=== PATIENT | male | born 1960 | race Caucasian/White ===

== ENCOUNTER 2025-01-10 09:30 | Day surgery (SDC) | payer OTHER ==
[2025-01-10 10:12] LABS: BASO % 0.9 % (0-2.0); EOS % 5.8 % (0-4.5); HEMATOCRIT 41.6 % (35.4-49); HEMOGLOBIN 13.9 GM/dL (11.7-16.9); LYMPH % 14.5 % (8-40); MCH 30.4 pg (25.7-33.7); MCHC 33.4 g/dl (32.0-35.9); MEAN CELL VOLUME 90.9 fl (80-96); MEAN PLT VOLUME 8.1 fl (7.5-11.1); NEUT % 68.8 % (42.8-82.8); PLATELET COUNT 268 10^3/uL (134-434); RBC 4.57 M/mm3 (4.00-5.60); RDW 13.8 % (11.9-15.9); WHITE BLOOD COUNT 7.9 K/mm3 (4.0-10.0)
[2025-01-10 10:33] LABS: CHLORIDE 105 mmol/L (98-107); SODIUM 138 mmol/L (136-145)
[2025-01-10 10:37] LABS: ANION GAP 9 mmol/L (4-13); BLOOD UREA NITROGEN 18.2 mg/dL (7-18); CO2 24 mmol/L (21-32); GLUCOSE,RANDOM 108 mg/dL (74-106); MAGNESIUM 2.1 mg/dL (1.8-2.4)
[2025-01-10 10:39] LABS: SGPT/ALT 28 U/L (13-61)
[2025-01-10 10:40] LABS: BILIRUBIN,TOTAL 0.5 mg/dL (0.2-1); CREATININE 0.9 mg/dL (0.55-1.3); SGOT/AST 19 U/L (15-37); TOT PROT 6.6 g/dl (6.4-8.2)
[2025-01-10 10:43] LABS: ALK PHOS 103 U/L (45-117)
[2025-01-10] MEDS: FOSAPREPITANT DIMEGLUMINE 150 MG in SODIUM CHLORIDE 145 ML IVPB ONE (11:21)
[2025-01-10] MEDS: SODIUM CHLORIDE 250 ML IV ONE (11:22)
[2025-01-10] MEDS: FAMOTIDINE 20 MG/50 ML IVPB 20 MG/50 ML MG IVPB ONE (12:25)
[2025-01-10] MEDS: PALONOSETRON HCL 0.25 MG/5 ML VIAL IVPUSH ONE (13:02)
[2025-01-10] MEDS: DEXAMETHASONE SODIUM PHOSPHATE 12 MG, DIPHENHYDRAMINE 25 MG in SODIUM CHLORIDE 100 ML IVPB ONE (13:06)
[2025-01-10] MEDS: CYANOCOBALAMIN (VITAMIN B-12) 1000 MCG/1 ML VIAL IM ONE (13:28)
[2025-01-10] MEDS: PEMETREXED DISODIUM IVPB ONE (13:42)
[2025-01-10] MEDS: SODIUM CHLORIDE IVPB ONE (13:42)
[2025-01-10] MEDS: PORTA CATH FLUSH 10 ML IVPUSH PRN (14:50)
[2025-01-10 16:31] VITALS: RESP 18; TEMP 98.2
[2025-01-10 16:41] VITALS: BP 122/70; PULSE 65
== END 2025-01-10 14:50 | disposition home or self-care (01) ==
LOC: J7W 09:30 → JONCCHEMO 09:30
PROVIDERS: ATTEND Internal Medicine Hematology & Oncology
DX: Z51.11 Encounter for antineoplastic chemotherapy (principal); C34.90 Malignant neoplasm of unspecified part of unspecified bronchus or lung
CPT/HCPCS: 36415; 80053; 83735; 85025; 96367; 96375; 96411; 96413; J1453; J9305

== ENCOUNTER 2025-01-11 09:40 | Day surgery (SDC) | payer OTHER ==
[2025-01-11] MEDS: DEXAMETHASONE SODIUM PHOSPHATE 6 MG in SODIUM CHLORIDE 50 ML IVPB ONE (12:49)
[2025-01-11] MEDS: SODIUM CHLORIDE 500 ML IV ONE (12:49)
[2025-01-11] MEDS: PORTA CATH FLUSH 10 ML IVPUSH PRN (14:35)
[2025-01-11] MEDS: PEGFILGRASTIM-CBQV (UDENYCA) 6 MG/0.6 ML SYRINGE SQ ONE (14:36)
[2025-01-11 17:17] VITALS: BP 129/68; PULSE 76; RESP 20; TEMP 97.6
== END 2025-01-11 15:00 | disposition home or self-care (01) ==
LOC: JONCCHEMO 09:40 → J7W 09:44 → JONCCHEMO 15:00
PROVIDERS: ATTEND Internal Medicine Hematology & Oncology
PROC: 3E043GC Introduction of Other Therapeutic Substance into Central Vein, Percutaneous Approach (ICD-10-PCS; principal; 2025-01-11)
PROC: 3E023GC Introduction of Other Therapeutic Substance into Muscle, Percutaneous Approach (ICD-10-PCS; 2025-01-11)
DX: C34.11 Malignant neoplasm of upper lobe, right bronchus or lung (principal); Z76.89 Persons encountering health services in other specified circumstances
CPT/HCPCS: 96365; 96366; 96372; Q5111

== ENCOUNTER 2025-01-30 10:00 | Day surgery (SDC) | payer OTHER ==
[2025-01-30] MEDS: SODIUM CHLORIDE 250 ML IV ONE (10:18)
[2025-01-30 10:39] LABS: BASO % 0.6 % (0-2.0); EOS % 3.7 % (0-4.5); HEMATOCRIT 39.9 % (35.4-49); HEMOGLOBIN 13.2 GM/dL (11.7-16.9); LYMPH % 20.9 % (8-40); MCH 30.9 pg (25.7-33.7); MCHC 33.1 g/dl (32.0-35.9); MEAN CELL VOLUME 93.3 fl (80-96); MEAN PLT VOLUME 7.9 fl (7.5-11.1); MONO % 11.1 % (3.8-10.2); NEUT % 63.7 % (42.8-82.8); PLATELET COUNT 415 10^3/uL (134-434); RBC 4.28 M/mm3 (4.00-5.60); RDW 14.2 % (11.9-15.9)
[2025-01-30 11:07] LABS: CHLORIDE 108 mmol/L (98-107); POTASSIUM 4.3 mmol/L (3.5-5.1); SODIUM 141 mmol/L (136-145)
[2025-01-30 11:10] LABS: ALBUMIN 3.9 g/dl (3.4-5.0); ANION GAP 4 mmol/L (4-13); BLOOD UREA NITROGEN 19.9 mg/dL (7-18); CO2 29 mmol/L (21-32); GLUCOSE,RANDOM 105 mg/dL (74-106); MAGNESIUM 2.1 mg/dL (1.8-2.4)
[2025-01-30 11:13] LABS: CREATININE 0.9 mg/dL (0.55-1.3); SGOT/AST 28 U/L (15-37); SGPT/ALT 67 U/L (13-61)
[2025-01-30 11:14] LABS: BILIRUBIN,TOTAL 0.3 mg/dL (0.2-1)
[2025-01-30 11:15] LABS: TOT PROT 6.7 g/dl (6.4-8.2)
[2025-01-30 11:16] LABS: ALK PHOS 105 U/L (45-117)
[2025-01-30] MEDS: FAMOTIDINE 20 MG/50 ML IVPB 20 MG/50 ML MG IVPB ONE (11:20)
[2025-01-30] MEDS: FOSAPREPITANT DIMEGLUMINE 150 MG in SODIUM CHLORIDE 145 ML IVPB ONE (11:58)
[2025-01-30] MEDS: PALONOSETRON HCL 0.25 MG/5 ML VIAL IVPUSH ONE (12:33)
[2025-01-30] MEDS: DEXAMETHASONE SODIUM PHOSPHATE 12 MG, DIPHENHYDRAMINE 25 MG in SODIUM CHLORIDE 100 ML IVPB ONE (12:36)
[2025-01-30] MEDS: PEMETREXED DISODIUM IVPB ONE (13:28)
[2025-01-30] MEDS: SODIUM CHLORIDE IVPB ONE (13:28)
[2025-01-30] MEDS: CYANOCOBALAMIN (VITAMIN B-12) 1000 MCG/1 ML VIAL IM ONE (13:45)
[2025-01-30] MEDS: PORTA CATH FLUSH 10 ML IVPUSH PRN (14:35)
[2025-01-30 14:53] VITALS: TEMP 98.3
[2025-01-30 15:02] VITALS: BP 115/49; PULSE 63
[2025-01-30 15:31] VITALS: RESP 20
== END 2025-01-30 14:40 | disposition home or self-care (01) ==
LOC: JONCCHEMO 10:00 → J7W 11:58 → JONCCHEMO 11:58
PROVIDERS: ATTEND Internal Medicine Hematology & Oncology
PROC: 3E04305 Introduction of Other Antineoplastic into Central Vein, Percutaneous Approach (ICD-10-PCS; principal; 2025-01-30)
PROC: 3E043GC Introduction of Other Therapeutic Substance into Central Vein, Percutaneous Approach (ICD-10-PCS; 2025-01-30)
PROC: 3E013GC Introduction of Other Therapeutic Substance into Subcutaneous Tissue, Percutaneous Approach (ICD-10-PCS; 2025-01-30)
DX: Z51.11 Encounter for antineoplastic chemotherapy (principal); C34.11 Malignant neoplasm of upper lobe, right bronchus or lung
CPT/HCPCS: 36415; 80053; 83735; 85025; 96372; 96375; 96411; 96413; J1453; J9305

== ENCOUNTER 2025-01-31 12:00 | Day surgery (SDC) | payer OTHER ==
[2025-01-31] MEDS: DEXAMETHASONE SODIUM PHOSPHATE 6 MG in SODIUM CHLORIDE 50 ML IVPB ONE (12:21)
[2025-01-31] MEDS: SODIUM CHLORIDE 500 ML IV ONE (12:21)
[2025-01-31] MEDS: PEGFILGRASTIM-CBQV (UDENYCA) 6 MG/0.6 ML SYRINGE SQ ONE (14:30)
[2025-01-31] MEDS ORDERED: PORTA CATH FLUSH 10 ML IVPUSH PRN (16:00)
[2025-01-31 16:03] VITALS: BP 110/55; PULSE 67; RESP 18; TEMP 98.1
== END 2025-01-31 14:40 | disposition home or self-care (01) ==
LOC: JONCCHEMO 12:00 → J7W 12:14 → JONCCHEMO 14:40
PROVIDERS: ATTEND Internal Medicine Hematology & Oncology
PROC: 3E023GC Introduction of Other Therapeutic Substance into Muscle, Percutaneous Approach (ICD-10-PCS; principal; 2025-01-31)
PROC: 3E043GC Introduction of Other Therapeutic Substance into Central Vein, Percutaneous Approach (ICD-10-PCS; 2025-01-31)
DX: C34.11 Malignant neoplasm of upper lobe, right bronchus or lung (principal); Z76.89 Persons encountering health services in other specified circumstances
CPT/HCPCS: 96365; 96366; 96372; Q5111

== ENCOUNTER 2025-02-20 08:52 | Day surgery (SDC) | payer OTHER ==
[2025-02-20 09:20] LABS: ABSOLUTE IMMATURE GRANULOCYTES 0.12 x10^3/uL (0.0-0.031); BASOPHILS # 0.05 x10^3/uL (0.01-0.08); EOSINOPHIL % 2.1 % (0.8-7.0); EOSINOPHILS # 0.18 x10^3/uL (0.04-0.54); HEMATOCRIT 38.3 % (40.1-51.0); HEMOGLOBIN 12.5 g/dL (13.7-17.5); MCHC 32.6 g/dl (32.3-36.5); MEAN CELL VOLUME 92.5 fl (79.0-92.2); MEAN PLT VOLUME 9.6 fl (9.4-12.4); MONOCYTE # 0.93 x10^3/uL (0.30-0.82); PLATELET COUNT 321 x10^3/uL (163-337); RDW 14.4 % (12.2-16.4)
[2025-02-20 09:28] LABS: INR 1.18 (0.83-1.09)
[2025-02-20 09:31] LABS: ACTIVATED PTT 29.8 SECONDS (25.2-36.5)
[2025-02-20 09:47] LABS: CHLORIDE 105 mmol/L (98-107); POTASSIUM 3.5 mmol/L (3.5-5.1); SODIUM 140 mmol/L (136-145)
[2025-02-20 09:49] LABS: ALBUMIN 3.6 g/dl (3.4-5.0); ANION GAP 8 mmol/L (4-13); BLOOD UREA NITROGEN 17.1 mg/dL (7-18); CALCIUM 8.6 mg/dL (8.5-10.1); CO2 27 mmol/L (21-32); MAGNESIUM 1.7 mg/dL (1.8-2.4)
[2025-02-20 09:50] LABS: GLUCOSE,RANDOM 142 mg/dL (74-106)
[2025-02-20 09:52] LABS: SGOT/AST 20 U/L (15-37); SGPT/ALT 49 U/L (13-61)
[2025-02-20 09:53] LABS: CREATININE 1.1 mg/dL (0.55-1.3)
[2025-02-20 09:54] LABS: BILIRUBIN,TOTAL 0.3 mg/dL (0.2-1); TOT PROT 6.3 g/dl (6.4-8.2)
[2025-02-20 09:55] LABS: ALK PHOS 106 U/L (45-117)
[2025-02-20] MEDS: SODIUM CHLORIDE 250 ML IV ONE (10:01)
[2025-02-20] MEDS ORDERED: MAGNESIUM SULF 50% (8.12 MEQ/2 ML-1 GM VIAL) IVPB ONE (10:09)
[2025-02-20] MEDS: FAMOTIDINE 20 MG/50 ML IVPB 20 MG/50 ML MG IVPB ONE (10:30)
[2025-02-20] MEDS: FOSAPREPITANT DIMEGLUMINE 150 MG in SODIUM CHLORIDE 145 ML IVPB ONE (11:03)
[2025-02-20] MEDS: DEXAMETHASONE SODIUM PHOSPHATE 12 MG, DIPHENHYDRAMINE 25 MG in SODIUM CHLORIDE 100 ML IVPB ONE (11:57)
[2025-02-20] MEDS: PALONOSETRON HCL 0.25 MG/5 ML VIAL IVPUSH ONE (12:00)
[2025-02-20] MEDS: CYANOCOBALAMIN (VITAMIN B-12) 1000 MCG/1 ML VIAL IM ONE (12:02)
[2025-02-20] MEDS: PEMETREXED DISODIUM IVPB ONE (12:41)
[2025-02-20] MEDS: SODIUM CHLORIDE IVPB ONE ×2 (12:41→13:00)
[2025-02-20] MEDS: CARBOPLATIN IVPB ONE (13:00)
[2025-02-20] MEDS: MAGNESIUM SULF 50% (8.12 MEQ/2 ML-1 GM VIAL) IVPB ONE (13:49)
[2025-02-20] MEDS: PORTA CATH FLUSH 10 ML IVPUSH PRN (14:55)
[2025-02-20 15:47] VITALS: BP 108/57; PULSE 69; RESP 20; TEMP 98.8
== END 2025-02-20 15:10 | disposition home or self-care (01) ==
LOC: J7W 08:52 → JONCCHEMO 08:52
PROVIDERS: ATTEND Internal Medicine Hematology & Oncology
PROC: 3E04305 Introduction of Other Antineoplastic into Central Vein, Percutaneous Approach (ICD-10-PCS; principal; 2025-02-20)
PROC: 3E043GC Introduction of Other Therapeutic Substance into Central Vein, Percutaneous Approach (ICD-10-PCS; 2025-02-20)
PROC: 3E023GC Introduction of Other Therapeutic Substance into Muscle, Percutaneous Approach (ICD-10-PCS; 2025-02-20)
DX: Z51.11 Encounter for antineoplastic chemotherapy (principal)
CPT/HCPCS: 36415; 80053; 83735; 85025; 85610; 85730; J1453; J9305

== ENCOUNTER 2025-02-21 14:25 | Day surgery (SDC) | payer OTHER ==
[2025-02-21] MEDS: SODIUM CHLORIDE 500 ML IV ONE (13:20)
[2025-02-21] MEDS: PROCHLORPERAZINE INJECTION 10 MG in SODIUM CHLORIDE 50 ML IVPB ONE (13:24)
[2025-02-21] MEDS: DEXAMETHASONE SODIUM PHOSPHATE 6 MG in SODIUM CHLORIDE 50 ML IVPB ONE (14:13)
[2025-02-21] MEDS: PEGFILGRASTIM-CBQV (UDENYCA) 6 MG/0.6 ML SYRINGE SQ ONE (15:05)
[2025-02-21] MEDS ORDERED: PORTA CATH FLUSH 10 ML IVPUSH PRN (18:17)
[2025-02-21 18:18] VITALS: BP 131/68; PULSE 64; RESP 20; TEMP 97.8
== END 2025-02-21 15:30 | disposition home or self-care (01) ==
LOC: JONCCHEMO 14:25
PROVIDERS: ATTEND Internal Medicine Hematology & Oncology
PROC: 3E043GC Introduction of Other Therapeutic Substance into Central Vein, Percutaneous Approach (ICD-10-PCS; principal; 2025-02-21)
PROC: 3E013GC Introduction of Other Therapeutic Substance into Subcutaneous Tissue, Percutaneous Approach (ICD-10-PCS; 2025-02-21)
DX: C34.11 Malignant neoplasm of upper lobe, right bronchus or lung (principal); Z76.89 Persons encountering health services in other specified circumstances
CPT/HCPCS: 96365; 96372; Q5111

== ENCOUNTER 2025-03-14 11:35 | Day surgery (SDC) | payer OTHER ==
[2025-03-14] MEDS: PROCHLORPERAZINE INJECTION 10 MG in SODIUM CHLORIDE 50 ML IVPB ONE (11:56)
[2025-03-14] MEDS: SODIUM CHLORIDE 500 ML IV ONE (11:57)
[2025-03-14] MEDS: DEXAMETHASONE SODIUM PHOSPHATE 6 MG in SODIUM CHLORIDE 50 ML IVPB ONE (13:44)
[2025-03-14] MEDS: PORTA CATH FLUSH 10 ML IVPUSH PRN (14:10)
[2025-03-14] MEDS: PEGFILGRASTIM-CBQV (UDENYCA) 6 MG/0.6 ML SYRINGE SQ ONE (14:11)
[2025-03-14 15:14] VITALS: RESP 18; TEMP 98.1
[2025-03-14 15:19] VITALS: BP 102/52; PULSE 62
== END 2025-03-14 14:15 | disposition home or self-care (01) ==
LOC: JONCCHEMO 11:35
PROVIDERS: ATTEND Internal Medicine Hematology & Oncology
PROC: 3E043GC Introduction of Other Therapeutic Substance into Central Vein, Percutaneous Approach (ICD-10-PCS; principal; 2025-03-14)
PROC: 3E013GC Introduction of Other Therapeutic Substance into Subcutaneous Tissue, Percutaneous Approach (ICD-10-PCS; 2025-03-14)
DX: C34.11 Malignant neoplasm of upper lobe, right bronchus or lung (principal); Z76.89 Persons encountering health services in other specified circumstances
CPT/HCPCS: 96365; 96367; 96372; 96375; Q5111